=== PATIENT | female | born 1950 | race Caucasian/White ===

== ENCOUNTER → 2017-02-17 | Outpatient (CLI) | payer BC ==
[~2017-02-17] VITALS: Ht 190.5 cm; Wt 168.2 kg
[~2017-02-17] MED LIST: 00186-0370-20 IH; ALDACTONE 25MG25 M1 PO; ASPIRIN 32325 MG/TAB PO; CALCIUM 600/VIT1 CAP PO; COZAAR 25MG25 MG/TAB PO; DULERA1 ARO IH; GLUCOPHAGE500 MG/TAB PO; HCTZ 25MG TAB25 MG PO; IBU600 MG PO; LIPITOR 10MG10 MG PO; NEURONTIN300 MG/CAP PO; NIACIN 100100 MG/TAB PO; TAMBOCOR50 MG PO; TENORMIN 5050 MG/TAB PO; VENTOLIN0.09 MG IH
[2017-02-17 12:04] VITALS: BP 155/88; PULSE 53
== END ==
LOC: EDSEX 11:45 → COL.RAD 11:45
DX: Z01.89 Encounter for other specified special examinations (principal)
CPT/HCPCS: J2704

== ENCOUNTER → 2017-02-24 | Outpatient (CLI) | payer BC ==
[~2017-02-24] VITALS: Ht 190.5 cm; Wt 163.8 kg
[2017-02-24 09:15] VITALS: BP 157/83; PULSE 54
[2017-02-24 11:00] VITALS: BP 115/69; PULSE 61
[2017-02-24 11:15] VITALS: BP 119/57; PULSE 53
[2017-02-24 11:30] VITALS: BP 126/66; PULSE 55
== END ==
LOC: COL.RAD 08:45 → EDSEX 09:00 → COL.RAD 09:00
DX: Z01.812 Encounter for preprocedural laboratory examination (principal); M47.26 Other spondylosis with radiculopathy, lumbar region; M51.16 Intervertebral disc disorders with radiculopathy, lumbar region; M48.07 Spinal stenosis, lumbosacral region; G54.4 Lumbosacral root disorders, not elsewhere classified; E88.2 Lipomatosis, not elsewhere classified; Z98.890 Other specified postprocedural states
CPT/HCPCS: A9585; G9654; J2704

== ENCOUNTER → 2018-03-14 | Outpatient (CLI) | payer MEDICARE, OTHER ==
[~2018-03-14] VITALS: Ht 190.5 cm; Wt 172.7 kg
[2018-03-14 10:35] VITALS: BP 137/85; PULSE 69
[2018-03-14 10:36] VITALS: BP 124/64; PULSE 74
== END ==
LOC: COL.RAD 08:52
DX: M54.9 Dorsalgia, unspecified (principal)
CPT/HCPCS: A9585; J2704

== ENCOUNTER → 2019-03-28 | Outpatient (CLI) | payer MEDICARE, OTHER ==
[~2019-03-28] VITALS: Ht 190.5 cm; Wt 116.1 kg
[~2019-03-28] MED LIST changes: +CENTRUM SILVER1 CTB PO; +PRILOSEC 20MG20 MG PO
[2019-03-28 08:19] VITALS: BP 152/87; PULSE 59
[2019-03-28 10:10] VITALS: BP 120/60; PULSE 62
[2019-03-28 10:15] VITALS: BP 119/74; PULSE 57
[2019-03-28 10:30] VITALS: BP 117/66; PULSE 55
== END ==
LOC: COL.RAD 08:00
DX: Z01.812 Encounter for preprocedural laboratory examination (principal); M25.452 Effusion, left hip; M51.37 Other intervertebral disc degeneration, lumbosacral region; M48.07 Spinal stenosis, lumbosacral region
CPT/HCPCS: A9585; J2250; J2704

== ENCOUNTER → 2021-05-06 | Outpatient (CLI) | payer MEDICARE, OTHER ==
[~2021-05-06] VITALS: Ht 190.5 cm; Wt 166.7 kg
[~2021-05-06] MED LIST changes: +LASIX 40MG TABL40 MG PO; +PLAVIX 75MG TAB75 MG PO; +TENORMIN 2525 MG/TAB PO
[2021-05-06 08:05] VITALS: BP 148/83; PULSE 70; TEMP 98
[2021-05-06 11:44] VITALS: BP 112/78; PULSE 90
[2021-05-06 11:45] VITALS: BP 129/86; PULSE 100
[2021-05-06 12:00] VITALS: BP 112/73; PULSE 93
[2021-05-06 12:15] VITALS: BP 93/60; PULSE 103
[2021-05-06 12:30] VITALS: BP 109/71; PULSE 94
== END ==
LOC: COL.RAD 07:33
DX: M19.012 Primary osteoarthritis, left shoulder (principal); S46.212A Strain of muscle, fascia and tendon of other parts of biceps, left arm, initial encounter; M67.814 Other specified disorders of tendon, left shoulder
CPT/HCPCS: J2704; J3010; J7120

== ENCOUNTER → 2021-10-13 | Outpatient (CLI) | payer MEDICARE, OTHER ==
[~2021-10-13] VITALS: Ht 190.5 cm; Wt 169.0 kg
[2021-10-13] VITALS (8 sets, daily range): BP systolic 60–129; BP diastolic 30–93; PULSE 81–96; TEMP 98
[~2021-10-13] MED LIST changes: +ANDROGEL1.62% TOP; +MOTRIN 600600 MG/TAB PO
== END ==
LOC: COL.RAD 11:14
DX: Z01.812 Encounter for preprocedural laboratory examination (principal); M48.061 Spinal stenosis, lumbar region without neurogenic claudication
CPT/HCPCS: A9575; J2704